=== PATIENT | male | born 1975 ===

== ENCOUNTER 2023-07-23 11:00 | Day surgery (SDC) | payer OTHER ==
[~2023-07-23] VITALS: Ht 167.6 cm; Wt 84.6 kg
[2023-07-23] MEDS ORDERED: ASPI81CH (11:45)
[2023-07-23] MEDS ORDERED: SILD25T (11:46)
[2023-07-23] MEDS ORDERED: CHLO25B (11:46)
[2023-07-23] MEDS ORDERED: METF500 (11:46)
[2023-07-23] MEDS ORDERED: Lisinopril2.5 MG (11:46)
[2023-07-23] MEDS ORDERED: MAGCHL64ER (11:46)
[2023-07-23] MEDS ORDERED: OMEGA-3 + VITA200 ML (11:46)
--- NOTE | 2023-07-23 12:56 | NUR ---
07/23/23 Petros6 Anna Marie Dumont CLIP PLACED X1 APPENDICEAL ORIFICE POLYP.
[2023-07-23 13:16] VITALS: BP 129/88
== END 2023-07-23 13:16 | disposition home or self-care (01) ==
LOC: ORSCSDS 11:00
PROVIDERS: Internal Medicine Gastroenterology
PROC: 0DBM8ZX Excision of Descending Colon, Via Natural or Artificial Opening Endoscopic, Diagnostic (ICD-10-PCS; principal; 2023-07-23 12:15)
PROC: 0DBH8ZX Excision of Cecum, Via Natural or Artificial Opening Endoscopic, Diagnostic (ICD-10-PCS; principal; 2023-07-23 12:15)
DX: Z12.11 Encounter for screening for malignant neoplasm of colon (principal); D12.1 Benign neoplasm of appendix; D12.4 Benign neoplasm of descending colon; E11.9 Type 2 diabetes mellitus without complications; Z87.891 Personal history of nicotine dependence; Z68.31 Body mass index [BMI] 31.0-31.9, adult; Z79.84 Long term (current) use of oral hypoglycemic drugs; Z79.82 Long term (current) use of aspirin; Z79.899 Other long term (current) drug therapy
CPT/HCPCS: 82947; 88305; J2250; J2704; J7120